=== PATIENT | male | born 1985 | race Caucasian/White ===

== ENCOUNTER 2018-08-14 13:12 | Emergency (ER) | payer BC, MEDICAID ==
--- NOTE | 2018-08-14 13:41 | ED ---
Complex/Multi-Sys Presentation - HPI Summary HPI Summary: Patient is a 33 y/o M presenting to ED from [facility] with complaints of bleeding from his eyes, ears, mouth, and nose. He also reports coughing up blood. In the room, no blood is visible. Patient claims that he was told to come to ED by it consulting director. He states that he had to come to ED or he would be discharged from rehab. He claims that the director is just trying to get rid of him. Patient states that he is in rehab to try to get back on suboxone. He claims that he has had EKGs, CTs and MRIs but "no one knows what's wrong me". Hx of cocaine usage, opioids usage, heroin usage. On triage, pain is denied. Nothing is noted to aggravate/alleviate Sx. Home medicaitons - History Of Current Complaint Chief Complaint: EDMentalHealth Time Seen by Provider: 08/14/18 13:20 Hx Obtained From: Patient Onset/Duration: Resolved Timing: Intermittent, Lasting: Severity Currently: None Aggravating Factor(s): nothing Alleviating Factor(s): nothing Associated Signs And Symptoms: Positive: Cough - productive of blood, Other - bleeding from his eyes, ears, mouth, and nose. - Allergies/Home Medications Allergies/Adverse Reactions: Allergies Allergy/AdvReac Type Severity Reaction Status Date / Time amoxicillin Allergy Intermediate Rash Verified 08/14/18 13:42 Home Medications: Home Medications Acetaminophen TAB* [Tylenol TAB*] 650 mg PO Q4H PRN 08/14/18 [History Confirmed 08/14/18] Buprenorp/Nalox 8-2 MG FILM [Suboxone 8 mg-2 mg Sl Film] 2 each SL DAILY [History Confirmed 08/14/18] Cyclobenzaprine TAB* [Flexeril 10 MG TAB*] 10 mg PO TID 08/14/18 [History Confirmed 08/14/18] Ibuprofen TAB* [Advil TAB*] 400 mg PO Q4HR PRN 08/14/18 [History Confirmed 08/14] Menthol [Icy Hot Back Patch] 5 % TOPICAL DAILY 08/14/18 [History Confirmed 08/14] Nicotine PATCH 21 MG/24 HR* 21 mg TRANSDERM DAILY 08/14/18 [History Confirmed ] Omeprazole CAP (NF) [Prilosec CAP* 20 MG] 20 mg PO DAILY 08/14/18 [History Confirmed 08/14/18] Prazosin CAP* [Minipress CAP*] 2 mg PO BEDTIME 08/14/18 [History Confirmed 08/14] cloNIDine TAB* [Catapres 0.1 MG TAB*] 0.1 mg PO TID 08/14/18 [History Confirmed 08/14/18] hydrOXYzine HCL TAB* [Atarax 25 MG TAB*] 25 mg PO QID PRN 08/14/18 [History Confirmed 08/14/18] PMH/Surg Hx/FS Hx/Imm Hx Sensory History: Denies: Hx Legally Blind, Hx Deafness Opthamlomology History: Denies: Hx Legally Blind EENT History: Denies: Hx Deafness - Surgical History Surgery Procedure, Year, and Place: left leg surgery Infectious Disease History: No Infectious Disease History: Denies: Traveled Outside the [place] in Last 30 Days - Family History Known Family History: Positive: Cardiac Disease - [place] in mother , Diabetes - grandparent , Other - father is alcoholic Negative: Hypertension - Social History Lives: [facility]hab Alcohol Use: None Substance Use Type: Reports: Other - Hx of opioids reported Smoking Status (MU): Former Smoker Review of Systems Constitutional: Other - bleeding from his eyes, ears, mouth, and nose Positive: Cough All Other Systems Reviewed And Are Negative: Yes Physical Exam - Summary Physical Exam Summary: Appearance: Well appearing, no pain distress Skin: warm, dry, reflects adequate perfusion Head/face: normal Eyes: EOMI, ABBI ENT: normal Neck: supple, non-tender Respiratory: CTA, breath sounds present Cardiovascular: RRR, pulses symmetrical Abdomen: non-tender, soft Musculoskeletal: normal, strength/ROM intact Neuro: normal, sensory motor intact, A&Ox3 Triage Information Reviewed: Yes Vital Signs On Initial Exam: Initial Vitals Temp Pulse Resp BP Pulse Ox 100 F 113 18 157/107 97 08/14/18 13:18 08/14/18 13:18 08/14/18 13:18 08/14/18 13:18 08/14/18 13:18 Vital Signs Reviewed: Yes Diagnostics - Vital Signs Vital Signs Temp Pulse Resp BP Pulse Ox 08/14/18 13:18 100 F 113 18 157/107 97 - Laboratory Result Diagrams: 08/14/18 13:36 08/14/18 13:36 Lab Statement: Any lab studies that have been ordered have been reviewed, and results considered in the medical decision making process. - Radiology cxr Radiology Interpretation Completed By: Radiologist Summary of Radiographic Findings: CXR IMPRESSION: No active cardiopulmonary disease is noted. THIS REPORT WAS REVIEWED BY ED PHYSICIAN. Re-Evaluation - Re-Evaluation First Eval Re-Evaluation Time: 15:00 Comment: Results of labs and tests were discussed with patient, he will be discharged. Patient is agreeable with this. Complex Multi-Symp Course/Dx Course Of Treatment: Patient is a 33 y/o M presenting to ED from [facility] rehab with complaints of bleeding from his eyes, ears, mouth, and nose. He also reports coughing up blood. In the room, no blood is visible. Patient claims that he was told to come to ED by it consulting director. He states that he had to come to ED or he would be discharged from rehab. He claims that the director is just trying to get rid of him. Patient states that he is in rehab to try to get back on suboxone. He claims that he has had EKGs, CTs and MRIs but "no one knows what 's wrong me". Hx of cocaine usage, opioids usage, heroin usage. Physical exam was normal. During ED course, patient was given Zithromax 500 mg PO. Labs, UA, urine tox screen were obtained. CXR IMPRESSION: No active cardiopulmonary disease is noted. Results of labs and tests were discussed with patient, he will be discharged. Patient is agreeable with this. - Diagnoses Differential Diagnoses/HQI/PQRI: Other - bronchitis Provider Diagnoses: Bronchitis Discharge - Sign-Out/Discharge Documenting (check all that apply): Patient Departure - discharge Patient Received Moderate/Deep Sedation with Procedure: No - NO PROCEDURES DONE - Discharge Plan Condition: Stable Disposition: HOME Prescriptions: Azithromycin TAB* [Zithromax TAB (Z-ALFREDO) 250 mg #6 tabs] 2 tab PO .TODAY, THEN 1 DAILY #1 alfredo Patient Education Materials: Acute Bronchitis (ED) Referrals: [facility] [Outside] - 3 Days Additional Instructions: RETURN TO ED WITH ANY NEW OR WORSENING SYMPTOMS. FOLLOW UP WITH PRIMARY CARE PHYSICIAN WITHIN THREE DAYS. - Billing Disposition and Condition Condition: STABLE Disposition: Home - Attestation Statements Document Initiated by Scribe: Yes Documenting Scribe: XIOMARA SOLIS Provider For Whom Scribe is Documenting (Include Credential): SHANA NICKERSON MD Scribe Attestation: XIOMARA Petersen , scribed for SHANA NICKERSON MD on 08/14/18 at 1727. Scribe Documentation Reviewed: Yes Provider Attestation: The documentation as recorded by the XIOMARA mcgarry accurately reflects the service I personally performed and the decisions made by SHANA underwood MD Status of Scribe Document: Viewed
[2018-08-14 13:46] LABS: ABS Basophils 0.1 10^3/ul (0-0.2); ABS Eosinophils 0.1 10^3/ul (0-0.6); ABS Lymphocytes 1.5 10^3/ul (1.0-4.8); ABS Monocytes 0.8 10^3/ul (0-0.8); ABS Neutrophils 8.5 10^3/ul (1.5-7.7); ABS Nucleated RBC 0 10^3/ul; Eosinophil % 0.9 %; Hematocrit 44 % (42-52); Hemoglobin 14.4 g/dl (14.0-18.0); Lymphocyte % 13.6 %; Mean Corpuscular HGB Conc 33 g/dl (31-36); Mean Corpuscular Hemoglobin 29 pg (27-31); Mean Corpuscular Volume 87 fL (80-94); Nucleated Red Blood Cells % 0; Platelet Count 306 10^3/ul (150-450); Red Cell Distribution Width 14 % (10.5-15); White Blood Count 10.9 10^3/ul (3.5-10.8)
[2018-08-14 13:49] LABS: Urine Appearance Clear; Urine Bilirubin Negative (Negative); Urine Blood Negative (Negative); Urine Color Yellow; Urine Glucose Negative (Negative); Urine Ketones Negative (Negative); Urine Nitrite Negative (Negative); Urine Protein Negative (Negative); Urine Specific Gravity 1.019 (1.010-1.030); Urine Urobilinogen Negative (Negative)
[2018-08-14 13:56] LABS: Activated Partial Thrombo Time 33.2 seconds (26.0-36.3)
[2018-08-14 13:59] LABS: ALT 30 U/L (7-52); AST 28 U/L (13-39); Albumin 4.6 g/dL (3.2-5.2); Albumin/Globulin Ratio 1.5 (1-3); Alkaline Phosphatase 83 U/L (34-104); Anion Gap 6 mmol/L (2-11); BUN/Creatinine Ratio 23.4 (8-20); Blood Urea Nitrogen 18 mg/dL (6-24); CO2 Carbon Dioxide 29 mmol/L (22-32); Calcium 9.9 mg/dL (8.6-10.3); Chloride 102 mmol/L (101-111); EGFR African American 139.9 (>60); EGFR Non-African American 115.6 (>60); Globulin 3.1 g/dL (2-4); Glucose 99 mg/dL (70-100); Potassium 4.2 mmol/L (3.5-5.0); Sodium 137 mmol/L (135-145); Total Protein 7.7 g/dL (6.4-8.9)
[2018-08-14 14:10] LABS: Barbiturates Urine Screen None Detected (None Detect); Benzodiazepine Urine Screen None Detected (None Detect); Urine Cannabinoids Screen None Detected (None Detect)
[2018-08-14 14:52] LABS: Acetaminophen < 15 mcg/mL; Alcohol < 10 mg/dL (<10); Salicylate < 2.50 mg/dL (<30)
[2018-08-14] MEDS ORDERED: Azithromycin TAB* 250 MG PO ONE (14:58)
[2018-08-14 15:04] LABS: TSH (Thyroid Stimulating Horm) 1.86 mcIU/mL (0.34-5.60)
[2018-08-14 15:25] VITALS: BP 149/79
== END 2018-08-14 15:24 | disposition home or self-care (01) ==
LOC: ED 13:12
DX: J40 Bronchitis, not specified as acute or chronic (principal); R05 Cough; Z87.891 Personal history of nicotine dependence; Z88.0 Allergy status to penicillin
CPT/HCPCS: 36415; 71046; 80053; 80307; 80320; 80329; 81003; 84443; 85025; 85610; 85730; 99282; G0480